=== PATIENT | female | born 1980 | race American Indian/Alaskan Native ===

== ENCOUNTER 2018-01-17 00:23 | Emergency (ER) | payer MEDICARE ==
[2018-01-17 02:04] VITALS: BP 120/79
[2018-01-17 03:34] LABS: Bacteria,Urine 1+ /HPF (Negative); Bilirubin,Urine NEG (Negative); Blood,Urine MOD (Negative); Color,Urine Yellow (Yellow); Mucus,Urine 2+ /HPF
--- NOTE | 2018-01-17 03:37 | Emergency Department Report ---
ED Female HPI - General Chief complaint: Urogenital-Female Stated complaint: BLOOD/PAINFUL URINATION Time Seen by Provider: 01/17/18 03:16 Source: patient Mode of arrival: Ambulatory Limitations: No Limitations - History of Present Illness Initial comments: 37-year-old -[place] female comes to the emergency room for complaint of painful urination with blood lower back pain 24 hours. She also complains of fishy vaginal odor 24 hours. Patient denies any abdominal pain. Patient is 12 [address]. MD Complaint: dysuria -: hour(s) (24) Radiation: non-radiating Severity: severe Severity scale (0 -10): 8 Quality: burning Consistency: constant Improves with: none Worsens with: urination Are you Now?: No - Related Data Previous Rx's Medication Instructions Recorded Last Taken Type Cephalexin [Keflex] 500 mg PO BID #20 capsule 06/23/13 Unknown Rx Ferrous Sulfate [Feosol 325 MG tab] 325 mg PO TID #90 tablet 06/23/13 Unknown Rx Nitrofurantoin Monohyd/M-Cryst 100 mg PO BID #14 capsule 01/17/18 Unknown Rx [Macrobid 100 mg Capsule] Phenazopyridine [Pyridium] 100 mg PO TID #9 tab 01/17/18 Unknown Rx metroNIDAZOLE [Metronidazole] 70 gm VG QDAY #5 gel.w.appl 01/17/18 Unknown Rx Allergies Allergy/AdvReac Type Severity Reaction Status Date / Time No Known Allergies Allergy Unverified 06/23/13 12:38 ED Review of Systems ROS: Stated complaint: BLOOD/PAINFUL URINATION Other details as noted in HPI Genitourinary: urgency, dysuria, frequency, hematuria, discharge ED Past Medical Hx - Past Medical History Additional medical history: chronic bronchitis, anemia - Surgical History Additional Surgical History: - Social History Smoking Status: Current Every Day Smoker Substance Use Type: None - Medications Home Medications: Home Medications Medication Instructions Recorded Confirmed Last Taken Type Cephalexin [Keflex] 500 mg PO BID #20 capsule 06/23/13 Unknown Rx Ferrous Sulfate [Feosol 325 MG tab] 325 mg PO TID #90 tablet 06/23/13 Unknown Rx Nitrofurantoin Monohyd/M-Cryst 100 mg PO BID #14 capsule 01/17/18 Unknown Rx [Macrobid 100 mg Capsule] Phenazopyridine [Pyridium] 100 mg PO TID #9 tab 01/17/18 Unknown Rx metroNIDAZOLE [Metronidazole] 70 gm VG QDAY #5 gel.w.appl 01/17/18 Unknown Rx ED Physical Exam - General Limitations: No Limitations General appearance: alert, in no apparent distress - Head Head exam: Present: atraumatic, normocephalic - Respiratory Respiratory exam: Present: normal lung sounds bilaterally. Absent: respiratory distress - Cardiovascular Cardiovascular Exam: Present: regular rate, normal rhythm. Absent: systolic murmur, diastolic murmur, rubs, gallop - GI/Abdominal GI/Abdominal exam: Present: soft, normal bowel sounds. Absent: distended, tenderness - External exam: Present: lacerations (perineum superficial) Speculum exam: Present: normal speculum exam, cervical discharge. Absent: erythema, vaginal discharge, vaginal bleeding Bi-manual exam: Present: normal bi-manual exam. Absent: cervical motion tendernes, adnexal tenderness, adnexal mass, uterine enlargement, uterine tenderness - Extremities Exam Extremities exam: Present: full ROM - Neurological Exam Neurological exam: Present: alert, oriented X3 - Psychiatric Psychiatric exam: Present: normal affect, normal mood - Skin Skin exam: Present: warm, dry, intact, normal color. Absent: rash ED Course Vital Signs 01/17/18 01:57 Temperature 98.0 F Pulse Rate 74 Respiratory 18 Rate Blood Pressure 120/79 O2 Sat by Pulse 100 Oximetry Critical care attestation.: If time is entered above; I have spent that time in minutes in the direct care of this critically ill patient, excluding procedure time. ED Disposition Clinical Impression: BV (bacterial vaginosis) UTI (urinary tract infection) Qualifiers: Urinary tract infection type: site unspecified Hematuria presence: with hematuria Qualified Code(s): N39.0 - Urinary tract infection, site not specified Disposition: DC- TO HOME OR SELFCARE Is pt being admited?: No Does the pt Need Aspirin: No Condition: Stable Instructions: Urinary Tract Infection in Women (ED), Bacterial Vaginosis (ED), Metronidazole (By mouth) Additional Instructions: Please complete antibiotics as prescribed. Increase her water intake by 1 L. Prescriptions: metroNIDAZOLE [Metronidazole] 70 gm VG QDAY #5 gel.w.appl Nitrofurantoin Monohyd/M-Cryst [Macrobid 100 mg Capsule] 100 mg PO BID #14 capsule Phenazopyridine [Pyridium] 100 mg PO TID #9 tab Referrals: PRIMARY CARE, [Primary Care Provider] - 3-5 Days Forms: Work/School Release Form(ED), STI Treatment and Prevention
[2018-01-17 03:39] LABS: HCG Qualitative,Urine Negative (Negative)
== END 2018-01-17 05:52 | disposition home or self-care (01) ==
LOC: ED 00:23
DX: N76.0 Acute vaginitis (principal); N39.0 Urinary tract infection, site not specified; F17.200 Nicotine dependence, unspecified, uncomplicated
CPT/HCPCS: 81001; 81025; 87210; 87591; 99283

== ENCOUNTER 2018-01-27 22:17 | Emergency (ER) | payer MEDICARE ==
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
[2018-01-28 05:48] VITALS: BP 112/70
== END 2018-01-28 05:48 | disposition home or self-care (01) ==
LOC: ED 22:17
DX: F43.10 Post-traumatic stress disorder, unspecified (principal); D64.9 Anemia, unspecified; J42 Unspecified chronic bronchitis; F17.200 Nicotine dependence, unspecified, uncomplicated
CPT/HCPCS: 93005; 93010; 99282

== ENCOUNTER 2018-02-06 02:19 | Emergency (ER) | payer MEDICARE ==
[2018-02-06 04:03] VITALS: BP 125/81
--- NOTE | 2018-02-06 04:29 | XRay Report ---
FINAL REPORT EXAM: XR CHEST ROUTINE 2V HISTORY: cough and congestion TECHNIQUE: PA and lateral views of the chest were submitted. FINDINGS: The heart size and vascularity appear normal. The lungs are clear. Pleural fluid is not seen. The bones and soft tissues appear well maintained. IMPRESSION: No acute cardiopulmonary process.
--- NOTE | 2018-02-06 04:43 | Emergency Department Report ---
- General Chief Complaint: Upper Respiratory Infection Stated Complaint: CHEST PIAN, SOB, COUGH, LOSS OF APPITTE Time Seen by Provider: 02/06/18 04:36 Source: patient Mode of arrival: Ambulatory Limitations: No Limitations - History of Present Illness Initial Comments: 37-year-old -Citizen Of [place] female comes to the emergency room complaining of one week of chest pain with cough and deep inspiration and with movement. Patient complains of cough and congestion. She denies any fever or chills but reports she has a history of bronchitis. Patient presses she's been using her albuterol inhaler which which she reports is not helping much. Patient denies any recent travels an airplane or car. Patient denies taking any control pills. She reports she is a smoker. MD Complaint: cough -: week(s) (1) Quality: sharp Improves With: nothing Worsens With: deep breaths - Related Data Previous Rx's Medication Instructions Recorded Last Taken Type Cephalexin [Keflex] 500 mg PO BID #20 capsule 06/23/13 Unknown Rx Ferrous Sulfate [Feosol 325 MG tab] 325 mg PO TID #90 tablet 06/23/13 Unknown Rx Nitrofurantoin Monohyd/M-Cryst 100 mg PO BID #14 capsule 01/17/18 Unknown Rx [Macrobid 100 mg Capsule] Phenazopyridine [Pyridium] 100 mg PO TID #9 tab 01/17/18 Unknown Rx metroNIDAZOLE [Metronidazole] 70 gm VG QDAY #5 gel.w.appl 01/17/18 Unknown Rx buPROPion XL [Wellbutrin Xl] 150 mg PO QAM #30 tab.er.24h 01/28/18 Unknown Rx ALBUTEROL Inhaler [ProAir HFA 2 puff IH QID PRN #1 inhalation 02/06/18 Unknown Rx Inhaler] Benzonatate [Tessalon Perle] 100 mg PO TID #15 capsule 02/06/18 Unknown Rx Allergies Allergy/AdvReac Type Severity Reaction Status Date / Time No Known Allergies Allergy Unverified 06/23/13 12:38 ED Review of Systems ROS: Stated complaint: CHEST PIAN, SOB, COUGH, LOSS OF APPITTE Other details as noted in HPI ENT: congestion Respiratory: cough, shortness of breath, other Gastrointestinal: denies: abdominal pain, nausea, diarrhea ED Past Medical Hx - Past Medical History Additional medical history: chronic bronchitis, anemia, Thyroid disease - Surgical History Additional Surgical History: - Social History Smoking Status: Current Every Day Smoker Substance Use Type: None - Medications Home Medications: Home Medications Medication Instructions Recorded Confirmed Last Taken Type Cephalexin [Keflex] 500 mg PO BID #20 capsule 06/23/13 Unknown Rx Ferrous Sulfate [Feosol 325 MG tab] 325 mg PO TID #90 tablet 06/23/13 Unknown Rx Nitrofurantoin Monohyd/M-Cryst 100 mg PO BID #14 capsule 01/17/18 Unknown Rx [Macrobid 100 mg Capsule] Phenazopyridine [Pyridium] 100 mg PO TID #9 tab 01/17/18 Unknown Rx metroNIDAZOLE [Metronidazole] 70 gm VG QDAY #5 gel.w.appl 01/17/18 Unknown Rx buPROPion XL [Wellbutrin Xl] 150 mg PO QAM #30 tab.er.24h 01/28/18 Unknown Rx ALBUTEROL Inhaler [ProAir HFA 2 puff IH QID PRN #1 inhalation 02/06/18 Unknown Rx Inhaler] Benzonatate [Tessalon Perle] 100 mg PO TID #15 capsule 02/06/18 Unknown Rx ED Physical Exam - General Limitations: No Limitations General appearance: alert (S congestion), in no apparent distress - Head Head exam: Present: atraumatic, normocephalic - Eye Eye exam: Present: normal appearance - ENT ENT exam: Present: mucous membranes moist - Neck Neck exam: Present: full ROM. Absent: tenderness, lymphadenopathy - Respiratory Respiratory exam: Present: rhonchi. Absent: respiratory distress, wheezes - Cardiovascular Cardiovascular Exam: Present: regular rate, normal rhythm. Absent: systolic murmur, diastolic murmur, rubs, gallop - GI/Abdominal GI/Abdominal exam: Present: soft, normal bowel sounds - Neurological Exam Neurological exam: Present: alert, oriented X3 - Psychiatric Psychiatric exam: Present: normal affect, normal mood - Skin Skin exam: Present: warm, dry, intact, normal color. Absent: rash ED Course Vital Signs 02/06/18 03:55 Temperature 98.1 F Pulse Rate 75 Respiratory 18 Rate Blood Pressure 125/81 O2 Sat by Pulse 98 Oximetry ED Medical Decision Making - Radiology Data Radiology results: report reviewed, image reviewed FINAL REPORT EXAM: XR CHEST ROUTINE 2V HISTORY: cough and congestion TECHNIQUE: PA and lateral views of the chest were submitted. FINDINGS: The heart size and vascularity appear normal. The lungs are clear. Pleural fluid is not seen. The bones and soft tissues appear well maintained. IMPRESSION: No acute cardiopulmonary process. Transcribed By: RB Dictated By: JAZZ POLLARD MD Electronically Authenticated By: JAZZ POLLARD MD Signed Date/Time: 02/06/18 0423 - Medical Decision Making Patient has been seen by this provider fast track. Patient's been given 60 mg of prednisone. Chest x-ray was ordered and performed shows normal examination no acute cardiopulmonary abnormalitie. We'll discharge patient on Tessalon Perles. Refill her albuterol inhaler. Critical care attestation.: If time is entered above; I have spent that time in minutes in the direct care of this critically ill patient, excluding procedure time. ED Disposition Clinical Impression: Bronchitis Disposition: DC-01 TO HOME OR SELFCARE Is pt being admited?: No Does the pt Need Aspirin: No Condition: Stable Instructions: Chronic Bronchitis (ED) Additional Instructions: They state Tessalon Perles as needed for cough usually her albuterol inhaler for shortness of breath. Please follow up with [facility] for further evaluation Prescriptions: ALBUTEROL Inhaler [ProAir HFA Inhaler] 2 puff IH QID PRN #1 inhalation PRN Reason: Shortness Of Breath Benzonatate [Tessalon Perle] 100 mg PO TID #15 capsule Referrals: PRIMARY CAREMD [Primary Care Provider] - 3-5 Days Forms: Work/School Release Form(ED)
[2018-02-06] MEDS ORDERED: DELTASONE PO ONE (04:49)
== END 2018-02-06 05:20 | disposition home or self-care (01) ==
LOC: ED 02:19
DX: J40 Bronchitis, not specified as acute or chronic (principal); F17.200 Nicotine dependence, unspecified, uncomplicated
CPT/HCPCS: 71046; 93005; 93010; 99283; J7512

== ENCOUNTER 2019-11-27 10:02 | Emergency (ER) | payer MEDICARE ==
[2019-11-27 10:43] LABS: Hematocrit 34.2 % (30.3-42.9); Hemoglobin 10.7 gm/dl (10.1-14.3); Mean Corpuscular HGB Conc 31 % (30-34); Mean Corpuscular Volume 74 fl (79-97); Platelet Count 255 K/mm3 (140-440); Red Blood Count 4.61 M/mm3 (3.65-5.03)
[2019-11-27 11:05] LABS: BUN/Creatinine Ratio 13; Blood Urea Nitrogen 12 mg/dL (7-17); Calcium 9.4 mg/dL (8.4-10.2); Hemolysis Index 23
[2019-11-27 11:30] LABS: Bilirubin,Urine NEG (Negative); Blood,Urine NEG (Negative); Color,Urine Yellow (Yellow); Mucus,Urine 1+ /HPF; Protein,Urine <15 mg/dL mg/dL (Negative); Urobilinogen,Urine < 2.0 mg/dL (<2.0)
--- NOTE | 2019-11-27 12:12 | Emergency Department Report ---
ED General Adult HPI - General Chief complaint: Abdominal Pain Stated complaint: BACK PAIN PUI?: No Time Seen by Provider: 11/27/19 11:41 Source: patient Mode of arrival: Ambulatory Limitations: No Limitations - History of Present Illness Initial comments: This is a 39-year-old female who presents the ED complaining of right-sided lower back pain started initially 3 weeks ago - Related Data Previous Rx's Medication Instructions Recorded Last Taken Type Enoxaparin 80 mg SUB-Q Q12HR #28 syringe 05/23/18 Unknown Rx tiZANidine [Zanaflex 4mg TAB] 4 mg PO BID #20 tablet 11/27/19 Unknown Rx Allergies Allergy/AdvReac Type Severity Reaction Status Date / Time No Known Allergies Allergy Verified 05/13/18 19:48 ED Review of Systems ROS: Stated complaint: BACK PAIN Other details as noted in HPI Constitutional: denies: chills, fever Eyes: denies: eye pain, eye discharge, vision change ENT: denies: ear pain, throat pain Respiratory: denies: cough, shortness of breath, wheezing Cardiovascular: denies: chest pain, palpitations Endocrine: no symptoms reported Gastrointestinal: denies: abdominal pain, nausea, diarrhea Genitourinary: denies: urgency, dysuria, discharge Musculoskeletal: denies: back pain, joint swelling, arthralgia Skin: denies: rash, lesions Neurological: denies: headache, weakness, paresthesias Psychiatric: denies: anxiety, depression Hematological/Lymphatic: denies: easy bleeding, easy bruising ED Past Medical Hx - Past Medical History Hx Congestive Heart Failure: No Hx Diabetes: No Hx Asthma: No Additional medical history: chronic bronchitis, anemia, Thyroid disease - Surgical History Additional Surgical History: - Social History Smoking Status: Current Every Day Smoker - Medications Home Medications: Home Medications Medication Instructions Recorded Confirmed Last Taken Type Enoxaparin 80 mg SUB-Q Q12HR #28 syringe 05/23/18 Unknown Rx tiZANidine [Zanaflex 4mg TAB] 4 mg PO BID #20 tablet 11/27/19 Unknown Rx ED Physical Exam - General Limitations: No Limitations General appearance: alert, in no apparent distress - Head Head exam: Present: atraumatic, normocephalic - Eye Eye exam: Present: normal appearance - ENT ENT exam: Present: mucous membranes moist - Neck Neck exam: Present: normal inspection - Respiratory Respiratory exam: Present: normal lung sounds bilaterally. Absent: respiratory distress - Cardiovascular Cardiovascular Exam: Present: regular rate, normal rhythm. Absent: systolic murmur, diastolic murmur, rubs, gallop - GI/Abdominal GI/Abdominal exam: Present: soft, normal bowel sounds - Extremities Exam Extremities exam: Present: normal inspection - Back Exam Back exam: Present: normal inspection, full ROM. Absent: CVA tenderness (R), CVA tenderness (L) - Neurological Exam Neurological exam: Present: alert, oriented X3 - Psychiatric Psychiatric exam: Present: normal affect, normal mood - Skin Skin exam: Present: warm, dry, intact, normal color. Absent: rash ED Course Vital Signs 11/27/19 10:13 Temperature 98.7 F Pulse Rate 98 H Respiratory 17 Rate Blood Pressure 113/89 O2 Sat by Pulse 100 Oximetry ED Medical Decision Making - Lab Data Result diagrams: 11/27/19 10:28 11/27/19 10:28 - Medical Decision Making 39-year-old female presents to ED with myalgia ofthe lower back ED course: Vital signs are normal patient is in no acute distress Discussed with patient follow-up with primary care physician. Discussed the patient and take medications as prescribed. Patient has no neurological deficit. Patient is alert and oriented 3 and understands all instructions given. Critical care attestation.: If time is entered above; I have spent that time in minutes in the direct care of this critically ill patient, excluding procedure time. ED Disposition Clinical Impression: Low back pain Disposition: DC-01 TO HOME OR SELFCARE Is pt being admited?: No Does the pt Need Aspirin: No Condition: Stable Instructions: Abdominal Pain (ED), Musculoskeletal Pain (ED) Additional Instructions: Make sure to follow up with the primary care physician as discussed. Take all your medications as you've been prescribed. If you have any worsening symptoms or develop new symptoms please return to ED immediately. Prescriptions: tiZANidine [Zanaflex 4mg TAB] 4 mg PO BID #20 tablet Referrals: [facility] [Provider Group] - 3-5 Days [facility] [Provider Group] - 3-5 Days Forms: Accompanied Note, Work/School Release Form(ED) Time of Disposition: 12:59
[2019-11-27 13:18] VITALS: BP 113/89
== END 2019-11-27 13:21 | disposition home or self-care (01) ==
LOC: ED 10:02
DX: M54.5 Low back pain (principal); F17.200 Nicotine dependence, unspecified, uncomplicated; Z98.890 Other specified postprocedural states; Z79.899 Other long term (current) drug therapy
CPT/HCPCS: 36415; 80048; 81001; 85027

== ENCOUNTER 2021-12-23 19:28 | Emergency (ER) | payer MEDICARE ==
[2021-12-23] MEDS ORDERED: HYDROmorphone 0.5 MG/0.5 ML INJ ONE (20:01)
[2021-12-23] MEDS ORDERED: HYDROmorphone 1 MG/1 ML INJ ONE (20:01)
[2021-12-23] MEDS ORDERED: ASPIRIN 325 MG TAB PO ONE (20:06)
--- NOTE | 2021-12-23 20:32 | XRay Report ---
CHEST 2 VIEWS INDICATION / CLINICAL INFORMATION: CHEST PAIN. COMPARISON: None available. FINDINGS: SUPPORT DEVICES: None. HEART / MEDIASTINUM: No significant abnormality. LUNGS / PLEURA: No significant pulmonary or pleural abnormality. No pneumothorax. ADDITIONAL FINDINGS: No significant additional findings. IMPRESSION: 1. No acute findings. Signer Name: Trev Serna MD Signed: 12/23/2021 8:28 PM Workstation Name: [id number]
[2021-12-23 21:11] LABS: Basophils # (Auto) 0.1 K/mm3 (0.0-0.1); Basophils % (Auto) 1.1 % (0.0-1.8); Eosinophils # (Auto) 0.1 K/mm3 (0.0-0.4); Eosinophils % (Auto) 1.2 % (0.0-4.3); Hematocrit 31.1 % (30.3-42.9); Hemoglobin 9.7 gm/dl (10.1-14.3); Lymphocytes # (Auto) 1.3 K/mm3 (1.2-5.4); Mean Corpuscular HGB Conc 31 % (30-34); Mean Corpuscular Volume 74 fl (79-97); Monocytes # (Auto) 0.6 K/mm3 (0.0-0.8); Monocytes % (Auto) 10.6 % (0.0-7.3); Platelet Count 286 K/mm3 (140-440); Red Blood Count 4.19 M/mm3 (3.65-5.03); Red Cell Distribution Width 14.5 % (13.2-15.2)
[2021-12-23 21:20] LABS: Alanine Aminotransferase 12 units/L (7-56); Albumin 4.1 g/dL (3.9-5); BUN/Creatinine Ratio 9; Blood Urea Nitrogen 8 mg/dL (7-17); Calcium 9.4 mg/dL (8.4-10.2); Hemolysis Index 3
[2021-12-24 05:25] VITALS: BP 151/85
--- NOTE | 2021-12-24 05:42 | Emergency Department Report ---
ED General Adult HPI - General Chief complaint: Chest Pain Stated complaint: CHEST PAIN/SOB Time Seen by Provider: 12/23/21 23:16 Source: patient Mode of arrival: Ambulatory Limitations: No Limitations - History of Present Illness Initial comments: 41-year-old female presents emerged department complaining chest tightness and discomfort last night after sexual encounter. States that she had an encounter with a gentleman who initially had a condom wants the encounter head and she turned around and realized that the condom had been removed at that point in time she started to hyperventilate and become worried and anxious which brought about these symptoms of chest tightness closing and racing thoughts. - Related Data Previous Rx's Medication Instructions Recorded Last Taken Type Enoxaparin 80 mg SUB-Q Q12HR #28 syringe 05/23/18 Unknown Rx tiZANidine [Zanaflex 4mg TAB] 4 mg PO BID #20 tablet 11/27/19 Unknown Rx Ketorolac [Toradol] 10 mg PO Q6H PRN #14 12/24/21 Unknown Rx Allergies Allergy/AdvReac Type Severity Reaction Status Date / Time No Known Allergies Allergy Verified 05/13/18 19:48 ED Review of Systems ROS: Stated complaint: CHEST PAIN/SOB Other details as noted in HPI Comment: All other systems reviewed and negative ED Past Medical Hx - Past Medical History Hx Congestive Heart Failure: No Hx Diabetes: No Hx Asthma: No Additional medical history: chronic bronchitis, anemia, Thyroid disease - Surgical History Additional Surgical History: - Social History Smoking Status: Current Every Day Smoker - Medications Home Medications: Home Medications Medication Instructions Recorded Confirmed Last Taken Type Enoxaparin 80 mg SUB-Q Q12HR #28 syringe 05/23/18 Unknown Rx tiZANidine [Zanaflex 4mg TAB] 4 mg PO BID #20 tablet 11/27/19 Unknown Rx Ketorolac [Toradol] 10 mg PO Q6H PRN #14 12/24/21 Unknown Rx ED Physical Exam - General Limitations: No Limitations General appearance: alert, in no apparent distress - Head Head exam: Present: atraumatic, normocephalic, normal inspection - Eye Eye exam: Present: normal appearance, PERRL. Absent: scleral icterus, conjunctival injection, periorbital swelling Pupils: Present: normal accommodation - ENT ENT exam: Present: mucous membranes moist - Neck Neck exam: Present: normal inspection, full ROM - Respiratory Respiratory exam: Present: normal lung sounds bilaterally, chest wall tenderness (Consider right chest wall with movement of the shoulder and tenderness along the right sternal border.). Absent: respiratory distress - Cardiovascular Cardiovascular Exam: Present: regular rate, normal rhythm. Absent: systolic murmur, diastolic murmur, rubs, gallop - GI/Abdominal GI/Abdominal exam: Present: soft, normal bowel sounds - Extremities Exam Extremities exam: Present: normal inspection - Back Exam Back exam: Present: normal inspection. Absent: CVA tenderness (R), CVA tenderness (L) - Neurological Exam Neurological exam: Present: alert, oriented X3, CN II-XII intact - Psychiatric Psychiatric exam: Present: normal affect, normal mood. Absent: anxious ( ) - Skin Skin exam: Present: warm, dry, intact, normal color. Absent: rash ED Course Vital Signs 12/23/21 12/24/21 19:33 05:24 Temperature 98.1 F Pulse Rate 89 86 Respiratory 18 12 Rate Blood Pressure 149/89 Blood Pressure 151/85 [Left] O2 Sat by Pulse 98 97 Oximetry ED Medical Decision Making - Lab Data Result diagrams: 12/23/21 20:39 12/23/21 20:39 - EKG Data EKG shows normal: sinus rhythm - EKG Data Interpretation: normal EKG - Radiology Data Radiology results: [place] [address] XRay Report Signed Patient: PEDRO BLANCHRAD MR#: [id number] : 1980 Acct:[id number] Age/Sex: 41 / F ADM Date: 12/23/21 Loc: ED Attending Dr: Ordering Physician: ED MD BRET Date of Service: 12/23/21 Procedure(s): XR chest routine 2V Accession Number(s): [id number] cc: ED MD BRET Fluoro Time In Minutes: CHEST 2 VIEWS INDICATION / CLINICAL INFORMATION: CHEST PAIN. COMPARISON: None available. FINDINGS: SUPPORT DEVICES: None. HEART / MEDIASTINUM: No significant abnormality. LUNGS / PLEURA: No significant pulmonary or pleural abnormality. No pneumothorax. ADDITIONAL FINDINGS: No significant additional findings. IMPRESSION: 1. No acute findings. Signer Name: Trev Serna MD Signed: 12/23/2021 8:28 PM Workstation Name: [id number] Transcribed By: CHAYA Dictated By: Trev Serna MD Electronically Authenticated By: Trev Serna MD Signed Date/Time: 12/23/212027 DD/ 27 TD/TT: - Medical Decision Making This patient presents with chest pain that is very unlikely angina or acute coronary syndrome. The emergency department evaluation has not identified any cause for suspicion that this chest pain has a cardiac etiology. Based on their history, EKG (which showed no evidence of ischemia or infarction) and imaging, in addition to the patient's physical exam, I see no evidence at this time for a malignant etiology for the patient's chest pain. There is no acute evidence for pulmonary embolus, acute myocardial infarction, pneumothorax, Boerhaeve syndrome, cardiac tamponade, thoracic artery dissection, or any other emergent cardiac, pulmonary or aortic pathology. Given the low pre-test probability for cardiac etiology of chest pain and the absence of any sign of ischemia or infarction, discharge for outpatient follow-up and further evaluation is reasonable. I have explained to the patient that even though a cardiac problem is very unlikely, follow-up and further testing is required to reduce further the already small uncertainty that exists. Other life-threatening diagnoses have been considered. The patient understands the need to return immediately if their symptoms worsen or they develop any new symptoms, and not to engage in any significant exertional activity until follow-up is obtained. Critical care attestation.: If time is entered above; I have spent that time in minutes in the direct care of this critically ill patient, excluding procedure time. ED Disposition Clinical Impression: Chest pain, Anxiety Disposition: 01 HOME / SELF CARE / HOMELESS Is pt being admited?: No Does the pt Need Aspirin: No Condition: Stable Instructions: Nonspecific Chest Pain, Adult Prescriptions: Ketorolac [Toradol] 10 mg PO Q6H PRN #14 PRN Reason: Pain Referrals: JASMEET SUERO MD [Primary Care Provider] - 3-5 Days
--- NOTE | 2021-12-25 13:35 | Electrocardiograph Report ---
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
== END 2021-12-24 05:25 | disposition home or self-care (01) ==
LOC: ED 19:28
DX: R07.9 Chest pain, unspecified (principal); F41.9 Anxiety disorder, unspecified; F17.200 Nicotine dependence, unspecified, uncomplicated
CPT/HCPCS: 36415; 71046; 80053; 84484; 85025; 93005; 99283; J1170